=== PATIENT | female | born 1945 | race Hispanic/Latino ===

== ENCOUNTER 2021-08-01 07:41 | Observation (INO) | payer OTHER, MEDICARE ==
[2021-07-29 10:16] LABS: BASOPHILS % (AUTO) 0.5 % (0.0-5.0); EOSINOPHILS % (AUTO) 1.6 % (0.0-8.0); LYMPHOCYTES % (AUTO) 29.3 % (21.0-51.0); MEAN CORPUSCULAR HEMOGLOBIN 28.7 pg (27.0-33.0); MEAN CORPUSCULAR HGB CONC 32.7 g/dL (32.0-36.0); MEAN CORPUSCULAR VOLUME 87.7 fL (79-99); NEUTROPHILS % (AUTO) 59.4 % (40.0-77.0); PLATELET COUNT (AUTO) 200 K/uL (130-400); RED BLOOD CELL COUNT(AUTO) 4.22 MIL/uL (4.00-5.50); RED CELL DISTRIBUTION WIDTH 13.5 % (11.0-15.5); WHITE BLOOD COUNT (AUTO) 4.4 K/uL (4.8-10.8)
[2021-07-29 10:18] LABS: APPEARANCE,URINE Cloudy (CLEAR); BILIRUBIN,URINE Negative (NEGATIVE); COLOR,URINE Yellow (YELLOW); GLUCOSE, URINE (UA) Negative (NEGATIVE); KETONES,URINE Negative (NEGATIVE); LEUKOCYTE ESTERASE ,URINE Large (NEGATIVE); NITRATE,URINE Negative (NEGATIVE); OCCULT BLOOD,URINE Negative (NEGATIVE); PH,URINE 6.5 (5.0-8.0); PROTEIN,URINE Negative (NEGATIVE)
[2021-07-29 10:19] LABS: BACTERIA,URINE Rare /HPF (None Seen); MUCUS,URINE Few LPF (None Seen); RBC,URINE 0-1 /HPF (0-1); SQUAMOUS EPITHELIAL CELL,UR Few /HPF (0-2)
[2021-07-29 10:26] LABS: CREATININE 0.6 mg/dL (0.5-1.5); POTASSIUM 4.3 mmol/L (3.5-5.1)
[2021-07-29 10:28] LABS: INR 0.93 (0.85-1.15)
[2021-07-29 10:29] LABS: PARTIAL THROMBOPLASTIN TIME 25.8 SEC (26.3-35.5)
[2021-07-29 13:03] VITALS: BP 177/84
[~2021-08-01] VITALS: Ht 162.6 cm; Wt 94.2 kg
[2021-08-01] VITALS (24 sets, daily range): BP systolic 123–177; BP diastolic 68–94
[~2021-08-01 07:41] MED LIST: AEC81 PO; ALEN70TA80 PO; GENTAMICIN SULFATE 240 MG in 0.9%NACL 100ML 100 ML IV ONE; LISI5TAB21 PO; ROSU40TA21 PO
[2021-08-01] MEDS ORDERED: LACTATED RINGERS 1000ML 1,000 ML IV ONE (08:15)
[2021-08-01] MEDS ORDERED: KETOROLAC 15MG/ML VIAL (15MG/ML) ONE (08:54)
[2021-08-01] MEDS ORDERED: ACETAMINOPHEN 500 MG TABLET ONE (08:54)
[2021-08-01] MEDS: CEFAZOLIN SODIUM 1 GM VIAL IVP SCH ×3 (09:08→19:08)
[2021-08-01] MEDS ORDERED: CELECOXIB 200 MG CAP ONE (09:26)
[2021-08-01] MEDS ORDERED: TRANEXAMIC ACID 1000MG/10ML ONE ×2 (09:26→13:58)
[2021-08-01] MEDS ORDERED: LIDOCAINE HCL-MPF 1% 5ML AMP IJ ONE (10:37)
[2021-08-01] MEDS ORDERED: SUCCINYLCHOLINE CHLORIDE 20 MG/ML 10 ML VIAL ONE (10:37)
[2021-08-01] MEDS ORDERED: ROCURONIUM 10MG/1ML SYR 10 MG/ML ML ONE (10:38)
[2021-08-01] MEDS ORDERED: FENTANYL CITRATE PF 50 MCG/1 ML 2ML VIAL ONE ×2 (10:38→11:59)
[2021-08-01] MEDS ORDERED: PROPOFOL 10 MG/ML 20ML VIAL IV ONE (10:38)
[2021-08-01] MEDS ORDERED: EPHEDRINE SULFATE 50 MG/ML AMPULE ONE (11:24)
[2021-08-01] MEDS: CEFAZOLIN SODIUM 1 GM VIAL ONE ×2 (11:44→11:45)
[2021-08-01] MEDS ORDERED: LIDOCAINE HCL-MPF 1% 2ML VIAL IV PRN (13:30)
[2021-08-01] MEDS ORDERED: OXYCODONE HCL 5 MG TAB PO PRN ×2 (13:30)
[2021-08-01] MEDS ORDERED: POTASSIUM CHLORIDE 20MEQ/100ML 100 ML IV PRN (13:30)
[2021-08-01] MEDS ORDERED: CALCIUM CARB 500MG PO PRN (13:30)
[2021-08-01] MEDS: ACETAMINOPHEN 500 MG TABLET PO SCH ×2 (13:30→21:52)
[2021-08-01] MEDS ORDERED: FERROUS FUMARATE 324 MG TABLET PO PRN (13:30)
[2021-08-01] MEDS ORDERED: POTASSIUM CHLORIDE 10% ELIXIR 20 MEQ/15 ML UDCUP PO PRN (13:30)
[2021-08-01] MEDS ORDERED: ONDANSETRON 4MG INJ IVP PRN (13:30)
[2021-08-01] MEDS ORDERED: KETOROLAC 15MG/ML VIAL (15MG/ML) IV PRN (13:30)
[2021-08-01] MEDS ORDERED: DiphenhydrAMINE HCL 50 MG/ML VIAL IVP PRN (13:30)
[2021-08-01] MEDS ORDERED: TRAMADOL HCL 50 MG TABLET PO PRN (13:30)
[2021-08-01] MEDS: 0.9%NACL 1000ML 1,000 ML IV SCH ×2 (13:30→21:25)
[2021-08-01] MEDS ORDERED: MEPERIDINE-PF 25 MG/ML SYG ONE (13:58)
[2021-08-01] MEDS: INSULIN HUMULIN R 100 UNIT/ML 3ML SQ SCH ×2 (15:55→21:00)
[2021-08-01] MEDS: LISINOPRIL 5 MG TABLET PO SCH (16:07)
[2021-08-01] MEDS: ASPIRIN 81 MG EC TAB PO SCH (20:18)
[2021-08-01] MEDS: FAMOTIDINE 20MG TAB PO SCH (20:18)
[2021-08-01] MEDS: ATORVASTATIN 40 MG TABLET PO SCH (20:19)
[2021-08-01] MEDS: CELECOXIB 200 MG CAP PO SCH (20:19)
[2021-08-02] MEDS: CEFAZOLIN SODIUM 1 GM VIAL IVP SCH ×2 (02:14→09:27)
[2021-08-02 03:50] VITALS: BP 139/76
[2021-08-02 04:01] LABS: HEMATOCRIT 28.7 % (36-48); MEAN CORPUSCULAR HEMOGLOBIN 28.6 pg (27.0-33.0); MEAN CORPUSCULAR HGB CONC 32.4 g/dL (32.0-36.0); MEAN CORPUSCULAR VOLUME 88.3 fL (79-99); RED BLOOD CELL COUNT(AUTO) 3.25 MIL/uL (4.00-5.50); RED CELL DISTRIBUTION WIDTH 13.7 % (11.0-15.5); WHITE BLOOD COUNT (AUTO) 6.4 K/uL (4.8-10.8)
[2021-08-02 04:18] LABS: CREATININE 0.6 mg/dL (0.5-1.5); POTASSIUM 3.4 mmol/L (3.5-5.1)
[2021-08-02] MEDS: ACETAMINOPHEN 500 MG TABLET PO SCH ×3 (06:01→21:58)
[2021-08-02] MEDS ORDERED: NON-FORMULARY MEDICATION 1 EACH (Alendronate Sodium 70 MG) PO SCH (06:30)
[2021-08-02] MEDS: INSULIN HUMULIN R 100 UNIT/ML 3ML SQ SCH ×4 (07:30→21:00)
[2021-08-02 08:00] VITALS: BP 128/61
[2021-08-02] MEDS: LISINOPRIL 5 MG TABLET PO SCH (09:20)
[2021-08-02] MEDS: ASPIRIN 81 MG EC TAB PO SCH ×2 (09:21→19:43)
[2021-08-02] MEDS: FAMOTIDINE 20MG TAB PO SCH ×2 (09:21→19:43)
[2021-08-02] MEDS: POLYETHYLENE GLYCOL 3350 17 GM POWD.PACK PO SCH (09:21)
[2021-08-02] MEDS: CELECOXIB 200 MG CAP PO SCH ×2 (09:21→19:43)
[2021-08-02] MEDS: KCL 20 MEQ ERTAB PO PRN ×2 (09:21→12:10)
[2021-08-02] MEDS: 0.9%NACL 1000ML 1,000 ML IV SCH (09:30)
[2021-08-02 11:26] VITALS: BP 133/63
[2021-08-02 16:00] VITALS: BP 132/84
[2021-08-02] MEDS: ATORVASTATIN 40 MG TABLET PO SCH (19:43)
[2021-08-02 20:28] VITALS: BP 154/75
[2021-08-03 01:24] VITALS: BP 150/80
[2021-08-03 04:26] VITALS: BP 139/68
[2021-08-03] MEDS: ACETAMINOPHEN 500 MG TABLET PO SCH ×2 (05:53→12:22)
[2021-08-03] MEDS: INSULIN HUMULIN R 100 UNIT/ML 3ML SQ SCH ×2 (05:57→11:30)
[2021-08-03 08:02] VITALS: BP 135/76
[2021-08-03] MEDS: ASPIRIN 81 MG EC TAB PO SCH (09:52)
[2021-08-03] MEDS: FAMOTIDINE 20MG TAB PO SCH (09:52)
[2021-08-03] MEDS: POLYETHYLENE GLYCOL 3350 17 GM POWD.PACK PO SCH (09:52)
[2021-08-03] MEDS: LISINOPRIL 5 MG TABLET PO SCH (09:52)
[2021-08-03] MEDS: CELECOXIB 200 MG CAP PO SCH (09:52)
[2021-08-03 11:29] VITALS: BP 140/74
[2021-08-03 15:41] VITALS: BP 136/71
[2021-08-03] MEDS ORDERED: AEC81 PO (18:25)
[2021-08-03] MEDS ORDERED: HYDR-4060 PO (18:25)
[2021-08-04] MEDS ORDERED: BISACODYL 10 MG SUPP.RECT RC PRN (13:30)
== END 2021-08-03 20:54 ==
LOC: DAH 07:41 → DAHIP 07:42 → 4AH 14:58
PROVIDERS: ADMIT Orthopaedic Surgery; ATTEND Orthopaedic Surgery
DX: M17.11 Unilateral primary osteoarthritis, right knee (principal); Z20.822 Contact with and (suspected) exposure to COVID-19; D62 Acute posthemorrhagic anemia; E11.9 Type 2 diabetes mellitus without complications; I10 Essential (primary) hypertension; E66.9 Obesity, unspecified; Z79.899 Other long term (current) drug therapy
CPT/HCPCS: 27447; 36415 ×2; 64447; 76942; 80048 ×2; 81001; 82948 ×10; 85025; 85027; 85610; 85730; 87088; 87635; 87641; 88305; 88311; 96365; 96375; 96376; 97039 ×4; 97116 ×4; 97161; 97530 ×3; A4215; A4221; A4222; A4223; A4649 ×4; A4663; A5120; A9272; C1776; C9803; G0378 ×53; J0330; J0690 ×5; J1580; J1885 ×2; J2175; J2405; J2704; J3010 ×2; J3490 ×4; J7120 ×2